=== PATIENT | female | born 1985 | race Hispanic/Latino ===

== ENCOUNTER → 2024-06-02 | Outpatient (CLI) | payer OTHER ==
[2024-06-02 19:02] LABS: FREE T4 1.18 NG/DL (0.89-1.76); THYROID STIMULATING HORMONE 4.973 uIU/ML (0.55-4.78)
== END ==
LOC: M PLALAB 15:33
PROVIDERS: ATTEND Nurse Practitioner Family
DX: E06.3 Autoimmune thyroiditis (principal)

== ENCOUNTER → 2024-07-01 | Outpatient (CLI) | payer OTHER | LOC: M CARPUL 09:56 → EDUNIT# 10:00 | PROVIDERS: ATTEND Physician Assistant | DX: R06.09 Other forms of dyspnea (principal) ==

== ENCOUNTER 2024-08-25 14:44 | Emergency (ER) | payer OTHER ==
[~2024-08-25] VITALS: Ht 160 cm; Wt 66.6 kg
[2024-08-25 14:48] VITALS: BP 136/76; TEMP 97.6; O2SAT 100
[2024-08-25] MEDS ORDERED: CELE100C PO (15:01)
[2024-08-25] MEDS ORDERED: ACET650T61 PO (15:01)
[2024-08-25] MEDS ORDERED: SYNT100T PO (15:01)
[2024-08-25 16:34] LABS: BASO # 0.1 10^3/uL (0.0-0.2); BASO % 0.7 % (0.0-1.0); EOS # 0.1 10^3/uL (0.0-0.5); EOS % 1.8 % (0.0-3.0); HEMATOCRIT 36.6 % (36.0-47.0); HEMOGLOBIN 12.7 g/dl (12.0-15.5); LYMPH # 2.2 10^3/uL (1.5-5.0); LYMPH % 30.1 % (24.0-44.0); MEAN CORPUSCULAR HEMOGLOBIN 31.4 pg (27.0-33.0); MEAN CORPUSCULAR HGB CONC 34.7 g/dl (32.0-36.5); MEAN CORPUSCULAR VOLUME 90.6 fl (80.0-96.0); MONO # 0.5 10^3/uL (0.0-0.8); MONO % 6.1 % (2.0-8.0); NEUTROPHILS # 4.5 10^3/uL (1.5-8.5); NEUTROPHILS % 61.2 % (36.0-66.0); PLATELET COUNT, AUTOMATED 210 10^3/uL (150-450); RED BLOOD COUNT 4.04 10^6/uL (4.00-5.40); WHITE BLOOD COUNT 7.4 10^3/uL (4.0-10.0)
[2024-08-25 17:03] LABS: LIPASE 28 U/L (12-53)
[2024-08-25 17:04] LABS: HCG, SERUM QUALITATIVE NEGATIVE (NEGATIVE)
[2024-08-25 17:05] LABS: ALBUMIN 3.7 G/DL (3.2-5.2); ALKALINE PHOSPHATASE 85 U/L (35-104); ALT/SGPT 21 U/L (7.0-40); AST/SGOT 21 U/L (<34); BILIRUBIN,DIRECT < 0.1 MG/DL (<0.4); BILIRUBIN,TOTAL 0.3 MG/DL (0.3-1.2); BLOOD UREA NITROGEN 10 MG/DL (9-23); CARBON DIOXIDE LEVEL 26 MMOL/L (20-31); CHLORIDE LEVEL 107 MMOL/L (98-107); CK-MB VALUE MASS < 1.0 NG/ML (<3.6); CREATININE FOR GFR 0.74 MG/DL (0.55-1.30); GLOMERULAR FILTRATION RATE > 60.0 (>60); GLUCOSE, FASTING 86 MG/DL (60-100); SODIUM LEVEL 139 MMOL/L (136-145); TOTAL PROTEIN 7.1 G/DL (5.7-8.2)
[2024-08-25 17:09] LABS: CPK CREATINE PHOSPHOKINASE 100 U/L (34-145)
[2024-08-25] MEDS ORDERED: ISOVUE-370 76% 100ML VIAL As Ordered ONE (19:15)
[2024-08-25] MEDS: FAMOTIDINE 20MG/2ML VIAL IVP ONE (19:57)
[2024-08-25] MEDS: ONDANSETRON 4MG 2ML VIAL IV ONE (19:57)
[2024-08-25 20:06] LABS: CK-MB VALUE MASS < 1.0 NG/ML (<3.6)
[2024-08-25 20:08] LABS: CPK CREATINE PHOSPHOKINASE 99 U/L (34-145); MB/CK RELATIVE INDEX 1.01 (< OR =4)
[2024-08-25] MEDS ORDERED: ONDA-282 PO (21:26)
[2024-08-25] MEDS ORDERED: PEPC1TAB5 PO (21:26)
== END 2024-08-25 21:33 | disposition home or self-care (01) ==
LOC: M ED 14:44
DX: K29.00 Acute gastritis without bleeding (principal); N83.291 Other ovarian cyst, right side; R00.1 Bradycardia, unspecified; E03.9 Hypothyroidism, unspecified; F10.10 Alcohol abuse, uncomplicated; Z79.1 Long term (current) use of non-steroidal anti-inflammatories (NSAID); Z79.899 Other long term (current) drug therapy
CPT/HCPCS: 74177; 80048; 80076; 81001; 82550; 82553; 83690; 84484; 84703; 85025; 93005; 96374; 99284; J2405; Q9967; S0028